=== PATIENT | male | born 1985 | race Caucasian/White ===

== ENCOUNTER 2022-04-17 21:26 | Observation (INO) | payer OTHER ==
[2022-04-17] MEDS ORDERED: SODIUM CHLORIDE 0.9% 1,000 ML IV STA (21:38)
--- NOTE | 2022-04-17 21:39 | ED ---
Chest Pain HPI - General Chief Complaint: Chest Pain Stated Complaint: chest pain,SOB Time Seen by Provider: 04/17/22 21:37 Source: patient, RN notes reviewed, old records reviewed Mode of arrival: ambulatory Limitations: no limitations - History of Present Illness Initial Comments: This is a 36-year-old male to the ER today for evaluation of chest pain. Patient comes in with what he believes elevated heart rate palpitations diaphoresis swelling and chest pain. Patient has 2 young deaths in both parents and complaining of chest pain that he has not experienced before. MD Complaint: chest pain -: hour(s) Onset: during rest, during exertion Pain Location: substernal Pain Radiation: none Severity: moderate Severity scale (1-10): 5 Improves With: nothing Worsens With: exertion Anginal Symptoms: diaphoresis, dyspnea, sense of impending doom Other Symptoms: palpitations Treatments Prior to Arrival: none - Related Data Allergies Allergy/AdvReac Type Severity Reaction Status Date / Time acetaminophen [From [place]] AdvReac Vomiting Verified 04/17/22 21:32 hydrocodone [From [place]] AdvReac Vomiting Verified 04/17/22 21:32 Review of Systems ROS Statement: Those systems with pertinent positive or pertinent negative responses have been documented in the HPI. ROS Other: All systems not noted in ROS Statement are negative. EKG Findings - EKG Comments: EKG Findings:: EKG interpreted by mi sinus 62. 173 QRS 13 QTC 396 Past Medical History Past Medical History: Osteoarthritis (OA) Additional Past Medical History / Comment(s): djd. auto immune disorder migraine Past Surgical History: Cholecystectomy, Orthopedic Surgery Additional Past Surgical History / Comment(s): mastectomy Past Psychological History: No Psychological Hx Reported Smoking Status: Vaper Past Alcohol Use History: None Reported Past Drug Use History: None Reported General Exam Limitations: no limitations General appearance: alert, in no apparent distress, anxious Head exam: Present: atraumatic, normocephalic, normal inspection Eye exam: Present: normal appearance, PERRL, EOMI. Absent: scleral icterus, conjunctival injection, periorbital swelling ENT exam: Present: normal exam, mucous membranes moist Neck exam: Present: normal inspection. Absent: tenderness, meningismus, lymphadenopathy Respiratory exam: Present: normal lung sounds bilaterally. Absent: respiratory distress, wheezes, rales, rhonchi, stridor Cardiovascular Exam: Present: normal rhythm, tachycardia, normal heart sounds. Absent: systolic murmur, diastolic murmur, rubs, gallop, clicks GI/Abdominal exam: Present: soft, normal bowel sounds. Absent: distended, tenderness, guarding, rebound, rigid Extremities exam: Present: normal inspection, full ROM, normal capillary refill. Absent: tenderness, pedal edema, joint swelling, calf tenderness Back exam: Present: normal inspection Neurological exam: Present: alert, oriented X3, CN II-XII intact Psychiatric exam: Present: normal affect, normal mood Skin exam: Present: warm, dry, intact, normal color. Absent: rash Course Vital Signs 04/17/22 21:28 Temperature 98 F Pulse Rate 74 Respiratory 150 H Rate O2 Sat by Pulse 98 Oximetry - Reevaluation(s) Reevaluation #1: 04/17/22 21:51 Medical records reviewed Reevaluation #2: 04/17/22 21:52 Patient is improved here in Reevaluation #3: 04/17/22 21:52 Patient is informed results questions answered 04/17/22 22:57 Imaging results CTA chest is negative for acute disease Reevaluation #4: 04/17/22 21:52 Differential Chest Pain: Stable Angina, Unstable Angina, STEMI, NSTEMI Aortic Dissection, Pneumothorax, Musculoskeletal, Esophageal Spasm GERD, Cholecystitis, Pancreatitis, Zoster, this is not meant to be an all-inclusive list. Reevaluation #5: 04/17/22 21:52 Was pt. sent in by a medical professional or institution? @ -no Did you speak to anyone other than the patient for history? @ -family Did you review nursing and triage notes? @ -agree accurate Were old charts reviewed? @ -no Differential Diagnosis? @ -prior EKG interpreted by me (3pts min.)? @ -yes X-rays interpreted by me (1pt min.)? @ -[none] CT interpreted by me (1pt min.)? @ -[none] U/S interpreted by me (1pt. min.)? @ -[none] What testing was considered but not performed? (CT, X-rays, U/S, labs)? Why? @ no What meds were considered but not given? Why? @ -[none] Did you discuss the management of the patient with other professionals? @ -no Did you reconcile home meds? @ -[none] Was smoking cessation discussed for >3mins.? @ -[none] Was critical care preformed (if so, how long)? @ -[none] Were there social determinants of health that impacted care today? How? (Homelessness, low income, unemployed, alcoholism, drug addiction, transportation, low edu. Level, literacy, decrease access to med. care, [facility], rehab)? @ -no Was there de-escalation of care discussed even if they declined? (Discuss DNR or withdrawal of care, Hospice)? @ -no What co-morbidities impacted this encounter? (DM, HTN, Smoking, COPD, CAD, Cancer, CVA, Hep., AIDS, mental health diagnosis, sleep apnea, morbid obesity)? @ -no Was patient admitted / discharged? @ -dc Undiagnosed new problem with uncertain prognosis? @ -[none] Drug Therapy requiring intensive monitoring for toxicity (Heparin, Nitro, Insulin, Cardizem)? @ -[none] Were any procedures done? @ -[none] Diagnosis/symptom? @ -[default] Acute, or Chronic, or Acute on Chronic? @ -[default] Uncomplicated (without systemic symptoms) or Complicated (systemic symptoms)? @ -[default] Side effects of treatment? @ -[none] Exacerbation, Progression, or Severe Exacerbation] @ -[no] Poses a threat to life or bodily function? @ -[no] - Consultations Consultation #1: Spoke with sound physicians who agree to admission Chest Pain MDM - MDM 36 male DEL with chest pain is his typical chest pain with diaphoresis and shortness of breath. Patient be admitted for chest pain observation Critical Care Time Critical Care Time: Yes Total Critical Care Time: 31 Disposition Clinical Impression: Chest pain Disposition: ADMITTED IP TO THIS [facility] Condition: Serious Is patient prescribed a controlled substance at d/c from ED?: No Referrals: None,Stated [Primary Care Provider] - 1-2 days
[2022-04-17 21:58] LABS: Basophils # (A) 0.1 k/uL (0-0.2); Basophils % (A) 1 %; Eosinophils # (A) 0.1 k/uL (0-0.7); Eosinophils % (A) 1 %; HCT 43.6 % (39.0-53.0); HGB 15.3 gm/dL (13.0-17.5); Lymphocytes # (A) 2.1 k/uL (1.0-4.8); Lymphocytes % (A) 33 %; MCH 30.7 pg (25.0-35.0); MCHC 35.1 g/dL (31.0-37.0); MCV 87.5 fL (80.0-100.0); Mean Platelet Volume 7.9; Monocytes # (A) 0.4 k/uL (0-1.0); Monocytes % (A) 6 %; Neutrophils # (A) 3.6 k/uL (1.3-7.7); Neutrophils % (A) 57 %; Platelet Count 209 k/uL (150-450); RBC 4.98 m/uL (4.30-5.90); RDW 12.8 % (11.5-15.5); WBC 6.4 k/uL (3.8-10.6)
[2022-04-17 22:15] LABS: INR 0.9 (<1.2); Partial Thromboplastin Time 24.8 sec (22.0-30.0); Prothrombin Time 9.9 sec (9.0-12.0)
[2022-04-17 22:16] LABS: ALT 34 U/L (4-49); AST 31 U/L (17-59); African American GFR (CKD) >90 (>60 ml/min/1.73 sqM); Albumin 4.9 g/dL (3.5-5.0); Alkaline Phosphatase 81 U/L (38-126); Anion Gap 10 mmol/L; Blood Urea Nitrogen 22 mg/dL (9-20); Calcium 9.3 mg/dL (8.4-10.2); Carbon Dioxide 26 mmol/L (22-30); Chloride 106 mmol/L (98-107); Glucose 129 mg/dL (74-99); Lipase 112 U/L (23-300); Magnesium 2.1 mg/dL (1.6-2.3); Non-African American GFR(CKD) >90 (>60 ml/min/1.73 sqM); Potassium 3.8 mmol/L (3.5-5.1); Sodium 142 mmol/L (137-145); Total Bilirubin 1.3 mg/dL (0.2-1.3); Total Protein 7.8 g/dL (6.3-8.2)
--- NOTE | 2022-04-17 22:19 | CT ---
EXAMINATION TYPE: CT angio chest DATE OF EXAM: 04/17/2022 COMPARISON: NONE HISTORY: Chest pain. SOB. CT DLP: 380.1 mGycm. Automated Exposure Control for Dose Reduction was Utilized. CONTRAST: CTA scan of the thorax is performed with IV Contrast, patient injected with 100cc mL of Isovue 300, p ulmonary embolism protocol. MIP Images are created on CT scanner and reviewed. 3D reconstructed maikel ges are created on an independent workstation and reviewed. FINDINGS: LUNGS: Dependent density bilateral lower lungs consistent with atelectatic change. No suspicious foca l consolidation. There is no pleural effusion or pneumothorax seen. The tracheobronchial tree is pat ent. MEDIASTINUM: There is satisfactory enhancement of the pulmonary artery and its branches, there is no CT evidence for pulmonary embolism. There are no greater than 1 cm hilar or mediastinal lymph nodes. No cardiomegaly or pericardial effusion is seen. Satisfactory enhancement of the thoracic aorta wi thout aneurysm or dissection. OTHER: Cholecystectomy clips are partially imaged. IMPRESSION: No CT evidence for acute pulmonary embolism. Lungs are grossly clear.
[2022-04-17] MEDS ORDERED: KETOROLAC 15 MG/ML 1 ML VIAL IVP STA (22:52)
[2022-04-17] MEDS ORDERED: LORazepam 2 MG/ML INJ IV PRN (22:52)
[2022-04-17] MEDS ORDERED: ASPIRIN 81 MG PO STA (22:54)
[2022-04-17] MEDS ORDERED: NITROGLYCERIN SL TABS 0.4 MG TAB SUBLINGUAL PRN (22:54)
[2022-04-17 23:19] VITALS: RESP 16
[2022-04-17] MEDS ORDERED: HEPARIN SODIUM 1,000 UN/ML (10ML VL) IV ONE (23:24)
[2022-04-17] MEDS ORDERED: HEPARIN SODIUM 1,000 UN/ML (10ML VL) IV PRN (23:24)
[2022-04-17] MEDS ORDERED: HEPARIN SOD,PORK IN 0.45% NACL 25,000 UNIT in 0.45% NACL 1 250ML.BAG IV SCH (23:30)
[2022-04-18] MEDS: MORPHINE SULFATE 4 MG/ML SYRINGE IV PRN ×3 (00:20→09:07)
--- NOTE | 2022-04-18 06:04 | P.HPIM ---
History of Present Illness H&P Date: 04/18/22 Chief Complaint: chest pain 36 year old male with no significant past medical history patient coming in with chest pain sharp central pain 7/10 in severity has been lasting all day , associated with palpitations and shortness of breath , pain not related to activity , however, he noticed it could be positional , which get worse when lays down on his left side. he denies any recent viral illness, denies any cough or URI symptoms , denies any nausea or vomiting, denies any cardiac history , denies premature CAD in his family. blood work unremarkable , D dimer negative , vital signs stable patient denies smoking , but does vaping sometimes, denies illicit drugs , denies heavy alcohol Review of Systems Pertinent positives as noted in HPI. All other systems were reviewed and are negative Past Medical History Past Medical History: Osteoarthritis (OA) Additional Past Medical History / Comment(s): djd. auto immune disorder migraine History of Any Multi-Drug Resistant Organisms: None Reported Past Surgical History: Cholecystectomy, Orthopedic Surgery Additional Past Surgical History / Comment(s): mastectomy Past Anesthesia/Blood Transfusion Reactions: Postoperative Nausea & Vomiting (PONV) Past Psychological History: No Psychological Hx Reported Smoking Status: Former smoker, Vaper Past Alcohol Use History: None Reported Past Drug Use History: None Reported - Past Family History familiy Additional Family Medical History / Comment(s): no premature CAD Medications and Allergies Allergies Allergy/AdvReac Type Severity Reaction Status Date / Time acetaminophen [From [place]] AdvReac Vomiting Verified 04/17/22 21:32 hydrocodone [From [place]] AdvReac Vomiting Verified 04/17/22 21:32 Physical Exam Vitals: Vital Signs Temp Pulse Pulse Resp BP BP Pulse Ox 04/18/22 02:34 16 04/18/22 02:00 97.7 F 67 18 120/74 98 04/18/22 00:00 98.4 F 80 16 124/80 04/17/22 23:00 73 16 129/94 96 04/17/22 21:28 98 F 74 150 H 98 Intake and Output 04/17/22 04/17/22 04/18/22 14:59 22:59 06:59 Other: Voiding Method Toilet Weight 77.111 kg 77.111 kg Constitutional: No acute distress, conversant, pleasant Eyes: Anicteric sclerae, moist conjunctiva, Pupils equal round reactive to light ENMT: NC/AT Oropharynx clear, no erythema, or exudates Neck: Supple, no masses, or JVD No carotid bruits No thyromegaly Lungs: Clear to auscultation Clear to percussion Normal respiratory effort, no accessory muscle use Cardiovascular: Heart regular in rate and rhythm, No murmurs, gallops, or rubs No peripheral edema Abdominal: Soft Nontender, no guarding, rebound or rigidity Abdomen moving with respiration Normoactive bowel sounds No hepatomegaly, No splenomegaly No palpable mass No abdominal wall hernia noted Skin: Normal temperature, tone, texture, turgor No induration No subcutaneous nodules No rash, lesions No ulcers Extremities: No digital cyanosis No clubbing Pedal pulses intact and symmetrical Radial pulses intact and symmetrical No calf tenderness Psychiatric: Alert and oriented to person, place and time Appropriate affect fair judgement Neuro Muscles Strength 5/5 in all 4 extremities Sensation to light touch grossly present throughout Cranial nerves II-XII grossly intact Lymphatics: no palpable cervical or supraclavicular lymph nodes Results CBC & Chem 7: 04/17/22 21:45 04/17/22 21:45 Labs: Abnormal Lab Results - Last 24 Hours (Table) 04/17/22 04/18/22 Range/Units 21:45 05:08 APTT 49.2 H (22.0-30.0) sec BUN 22 H (9-20) mg/dL Glucose 129 H (74-99) mg/dL Thrombosis Risk Factor Assmnt - Choose All That Apply Any of the Below Risk Factors Present?: No Other Risk Factors: No Other congenital or acquired thrombophilia - If yes, enter type in comment: No Thrombosis Risk Factor Assessment Level: Very Low Risk Assessment and Plan Assessment: chest pain trops negative d dimer negative vital signs stable cardio consult cardiac tele pain control ASA daily d/c heparin drip which was started in the ED check lipid panel EKG no acute ST changes CTA chest no acute pathology full code dvt ppx scd
[2022-04-18] MEDS ORDERED: HEPARIN SODIUM,PORCINE/PF 5,000 UNIT/0.5 ML SYRINGE SQ SCH (08:00)
[2022-04-18] MEDS ORDERED: ASPIRIN 325 MG TAB PO SCH (09:00)
[2022-04-18] MEDS ORDERED: ATORVASTATIN 80 MG TAB PO SCH (09:00)
[2022-04-18 09:24] LABS: Chol/HDL Ratio 3.72 Ratio; LDL Cholesterol,Calculated 78.9 mg/dL (0.0-131.0)
[2022-04-18 09:31] VITALS: BP 115/69; PULSE 66; TEMP 97.6
--- NOTE | 2022-04-18 11:21 | CA ---
Stress Echo Report Raman Patel Age: 36 Gender: M : 1985 Exam Date: 04/18/2022 10:08 Exam Location: [facility] Ht (in): 68 Wt (lb): 170 Ordering Physician: Eros Summers MD ([id number]) Referring Physician: Melina GALINDO Manager Lpn: FABIÁN Technologist Procedure CPT: Indication: Chest Pain ICD-9 Codes: Rhythm: Patient History: CHEST PAIN, DIFFICULTY IN BREATHING, PALPITATIONS, CURRENT SMOKER X 15 YEARS Cardiac Medications: Medications in past 24 hours: Contrast: Stress Results Protocol: Sammy Total dose(mL): Exercise Duration (min:sec): 12:[address] Depression (mm): Angina Score: Porter Score: METS: 12.3 Resting HR: 69 Resting BP: 137 / 98 Peak HR: 149 Peak BP: 219 / 83 Max Predicted HR: 183 81 % Max Predicted HR Target HR: 156 Double Product: [id number] Stress Summary: BP Response: Reason for Termination: MAX EXERTION/FATIGUE Cardiac Symptoms: CHEST PAIN ECG Analysis Resting ECG: Sinus rhythm normal axis normal intervals Stress ECG: Patient exercised on Sammy protocol for 12 minutes achieving 13 METs 81% of predicted maximal heart rate without chest pain or diagnostic ST segment depression Arrhythmia: Echo Analysis Resting Echo: Normal left ventricular size wall motion systolic function Peak Echo Analysis: Normal hyperdynamic response of all symptoms of myocardium noted MEASUREMENTS (Male/Female) Normal Values CONCLUSIONS Excellent exercise tolerance Inability to attain target heart rate ar 81% of predicted maximal heart rate there is no evidence of ischemia Patient is stable for discharge Dr. Eros Summers MD (Electronically Signed) Final Date: 18 April 2022 11:20
--- NOTE | 2022-04-18 11:42 | CA ---
Transthoracic Echo Report Name: Raman Patel Age: 36 Gender: M : 1985 Exam Date: 04/18/2022 10:25 Exam Location: [facility] Ht (in): 68 Wt (lb): 170 Ordering Physician: Eros Summers MD ([id number]) Attending/Referring Phys: Melina GALINDO Curriculum Supervisor Agnes Mccord RDCS Procedure CPT: Indications: Chest Pain Cardiac Hx: Technical Quality: Fair Contrast 1: Total Dose (mL): Contrast 2: Total Dose (mL): MEASUREMENTS (Male / Female) Normal Values 2D ECHO LV Diastolic Diameter PLAX 4.8 cm 4.2 - 5.9 / 3.9 - 5.3 cm LV Systolic Diameter PLAX 2.6 cm IVS Diastolic Thickness 1.3 cm 0.6 - 1.0 / 0.6 - 0.9 cm LVPW Diastolic Thickness 1.2 cm 0.6 - 1.0 / 0.6 - 0.9 cm LV Relative Wall Thickness 0.5 RV Internal Dim ED PLAX 3.0 cm LA Volume 44.7 cm??? 18 - 58 / 22 - 52 cm??? DOPPLER AV Peak Velocity 142.3 cm/s AV Peak Gradient 8.1 mmHg LVOT Peak Velocity 122.7 cm/s LVOT Peak Gradient 6.0 mmHg LVOT Velocity Time Integral 21.3 cm MV Area PHT 4.7 cm??? Mitral E Point Velocity 97.6 cm/s Mitral A Point Velocity 74.3 cm/s Mitral E to A Ratio 1.3 MV Deceleration Time 162.8 ms MV E' Velocity 13.1 cm/s Mitral E to MV E' Ratio 7.5 TR Peak Velocity 255.3 cm/s TR Peak Gradient 26.1 mmHg Right Ventricular Systolic Press 30.1 mmHg PV Peak Velocity 198.0 cm/s PV Peak Gradient 15.7 mmHg PV Mean Velocity 136.9 cm/s PV Mean Gradient 8.4 mmHg PV Velocity Time Integral 37.0 cm FINDINGS Left Ventricle Mildly increased septal wall thickness. Normal left ventricular systolic function with no obvious regional wall motion abnormalities. Left ventricular ejection fraction is estimated at 55%. Left ventricular cavity size normal. Normal left ventricular diastolic filling pattern. Right Ventricle Normal right ventricular size and function. Mild pulmonary hypertension. Right Atrium Normal right atrial size. Left Atrium Normal left atrial size. Mitral Valve Structurally normal mitral valve. No mitral stenosis, regurgitation or prolapse. Aortic Valve Trileaflet aortic valve. No aortic valve stenosis or regurgitation. Tricuspid Valve Structurally normal tricuspid valve. Mild tricuspid regurgitation. Pulmonic Valve Structurally normal pulmonic valve. Trace pulmonic regurgitation. Pericardium No pericardial effusion. Aorta Normal size aortic root and proximal ascending aorta. CONCLUSIONS Normal LV systolic function Mild tricuspid regurgitation Previewed by: Dr. Eros Summers MD (Electronically Signed) Final Date: 18 April 2022 11:41
--- NOTE | 2022-04-18 11:58 | CONS ---
CONSULTATION CHIEF COMPLAINT: Chest pain. HISTORY OF PRESENT ILLNESS: Raman is a 36-year-old gentleman with no significant past medical history. He is a disabled vet, comes to hospital complaining of chest discomfort. He describes it as a sharp precordial pain, intermittent, on and off going on for a while, somewhat worse yesterday and came into the hospital. The only thing that seemed to help his pain is morphine, sublingual nitroglycerin, apparently did not make any difference. EKG shows sinus rhythm, normal axis, normal intervals. There is no prior history of coronary artery disease or congestive heart failure. He had a CTA of the chest that is negative for pulmonary embolism. He has had 3 sets of cardiac enzymes that are negative. His lipid profile shows a total cholesterol of 130 with HDL of 35 and LDL of 78. PAST MEDICAL HISTORY: Negative for hypertension, diabetes, dyslipidemia. MEDICATIONS: None. ALLERGIES: None. FAMILY HISTORY: Negative for premature coronary artery disease. SOCIAL HISTORY: Significant for smoking. There is no history of EtOH abuse or drug abuse. REVIEW OF SYSTEMS: review of systems has been performed, pertinents are as documented. PHYSICAL EXAMINATION: GENERAL: Comfortable at rest. VITAL SIGNS: Stable. NECK: There is no jugular venous distention. Carotid upstroke is normal. There is no bruit. CHEST: Reveals good air entry bilaterally. HEART: Reveals first and second heart sounds. No gallop. No murmur. No rub. ABDOMEN: Soft, nontender. EXTREMITIES: Did not reveal any edema. Peripheral pulses are felt. LABORATORY DATA: Labs show that the 3 sets of troponins are negative. Hemoglobin is normal. Creatinine is 0.8. ASSESSMENT: Atypical chest pain syndrome. PLAN: I will obtain an echo and stress test. If they are unremarkable, he may be discharged home and follow up with his own primary care physician. MMODL / IJN: [id number] /
--- NOTE | 2022-04-18 13:42 | P.DS ---
Providers Date of admission: 04/17/22 22:55 Expected date of discharge: 04/18/22 Attending physician: Bernie Smith MD Consults: 04/17/22 22:55 Consult Physician Urgent Consulting Provider: Vasquez Tomas Consult Reason/Comments: cp Do you want consulting provider notified?: Yes Primary care physician: Stated None Hospital Course: Discharge Diagnosis: Acute chest pain Hospital Course: 36-year-old with no significant past medical history presented with chest pain. Vital signs within normal limits, but work was unremarkable, d-dimer negative. Cardiology consulted. Echocardiogram showed normal LV systolic function, mild TR. Stress echo showed no evidence of ischemia. Troponin negative 3. Patient seen and examined at bedside. Vital signs reviewed and stable. General: nontoxic, no distress, appears at stated age Derm: warm, dry Head: atraumatic, normocephalic, symmetric Eyes: EOMI, no lid lag, anicteric sclera Mouth: no lip lesion, mucus membranes moist Cardiovascular: S1S2 reg, no murmur Lungs: CTA bilateral, no rhonchi, no rales , no accessory muscle use Abdominal: soft, nontender to palpation, no guarding, no appreciable organomegaly Ext: no gross muscle atrophy, no edema, no contractures Neuro: CN II-XI grossly intact, no focal neuro deficits Psych: Alert, oriented, appropriate affect A total of 32 minutes of time were spent preparing this complex discharge summary. Patient was discharged on 04/18/22 at 13:41. Patient Condition at Discharge: Stable Plan - Discharge Summary Discharge Rx Participant: No New Discharge Prescriptions: No Action No Known Home Medications Discharge Medication List No Known Home Medications 04/18/22 [History] Follow up Appointment(s)/Referral(s): None,Stated [Primary Care Provider] - 1-2 days Patient Instructions/Handouts: Noncardiac Chest Pain (DC), Chest Pain (DC) Activity/Diet/Wound Care/Special Instructions: Please see a PCP within one week. Discharge Disposition: HOME SELF-CARE
== END 2022-04-18 14:21 | disposition home or self-care (01) ==
LOC: EC 21:26 → 6NMEDSUR 22:55
PROVIDERS: ADMIT Internal Medicine; ATTEND Internal Medicine
DX: R07.89 Other chest pain (principal); R06.02 Shortness of breath; R00.2 Palpitations; M19.90 Unspecified osteoarthritis, unspecified site; D89.89 Other specified disorders involving the immune mechanism, not elsewhere classified; G43.909 Migraine, unspecified, not intractable, without status migrainosus; Z90.49 Acquired absence of other specified parts of digestive tract; Z90.10 Acquired absence of unspecified breast and nipple; Z87.891 Personal history of nicotine dependence; F17.290 Nicotine dependence, other tobacco product, uncomplicated; Z88.5 Allergy status to narcotic agent
CPT/HCPCS: 96376; 96361 ×2; 96372; 96365; 96375 ×2; 99291; 36415; 93005; 93306; 93351; 85379; 83880; 80061; 80053; 83690; 83735; 84484 ×2; 85025; 85610; 85730 ×2; 71275; G0378 ×2; J2270; J1644 ×3; J1885; Q9967